=== PATIENT | female | born 1965 | race Caucasian/White ===

== ENCOUNTER 2021-11-29 14:55 | Inpatient (IN) | payer OTHER ==
[~2021-11-29] VITALS: Ht 149.9 cm; Wt 64.4 kg
[2021-11-29 16:25] LABS: HEMOGLOBIN 8.2 gm/dl (12.3-15.3); RED BLOOD COUNT 2.61 M/UL (4.00-5.10)
[2021-11-29 16:26] LABS: WHITE BLOOD COUNT 0.3 K/UL (4.5-11.0)
[2021-11-29 16:28] LABS: BUN/CREATININE RATIO 33 (0-10)
[2021-11-30] MEDS ORDERED: MYCOSTATIN100000 UTS PO (01:12)
[2021-11-30] MEDS ORDERED: SERTRALINE HCL50 MG PO (01:13)
[2021-11-30] MEDS ORDERED: PROTONIX 40 MG40 M1 PO (01:14)
[2021-11-30] MEDS ORDERED: ROXICODONE5 MG PO (01:14)
[2021-11-30] MEDS ORDERED: LIDOCAINE-PRILOC5 GM TP (01:15)
[2021-11-30 02:55] LABS: RED BLOOD COUNT 1.89 M/UL (4.00-5.10); WHITE BLOOD COUNT 0.2 K/UL (4.5-11.0)
--- NOTE | 2021-11-30 03:24 | NUR ---
0312- Lab called to clarify blood transfusion order. Jose in lab stated that the patient is B- and there is no B- blood in house. He also stated there are only 2 units of O- blood in house and that is held for trauma blood. Jose in lab wanted me to call Dr. Santoyo to see which type of blood would he prefer. Called Dr. Santoyo and he stated to go ahead and order 2 units of Irradiated B- blood from [facility]. Notified Jose in lab.
[2021-11-30 03:31] LABS: BUN/CREATININE RATIO 28 (0-10)
--- NOTE | 2021-11-30 03:53 | NUR ---
0350- Notified Dr. Santoyo that lab called and confirmed that we would be receiving 2 units of irradiated blood from [facility] (1 unit of irradiated B- and 1 unit of irradiated O- blood). Patient is being monitored closely, vital signs within normal limits. Patient agreed to blood transfusion and wanted her to sign the blood consent. Blood consent signed and in chart.
[2021-11-30 18:56] LABS: HEMOGLOBIN 9.5 gm/dl (12.3-15.3); RED BLOOD COUNT 3.05 M/UL (4.00-5.10); WHITE BLOOD COUNT 0.3 K/UL (4.5-11.0)
[2021-11-30 19:44] LABS: HEMOGLOBIN 9.4 gm/dl (12.3-15.3)
[2021-12-01 04:21] LABS: HEMOGLOBIN 9.5 gm/dl (12.3-15.3); RED BLOOD COUNT 3.04 M/UL (4.00-5.10)
[2021-12-01 04:26] LABS: WHITE BLOOD COUNT 0.3 K/UL (4.5-11.0)
[2021-12-01 04:47] LABS: BUN/CREATININE RATIO 31 (0-10)
[2021-12-01] MEDS ORDERED: DIFLUCAN200 MG PO (13:18)
[2021-12-01] MEDS ORDERED: SANCUSO1 EACH TD (13:19)
[2021-12-01] MEDS ORDERED: MORPHINE SULFAT30 M4 PO (13:20)
[2021-12-01] MEDS ORDERED: FLONASE 0.05% N16 GM (13:20)
[2021-12-01] MEDS ORDERED: VITAMIN D21250 MCG PO (13:20)
[2021-12-01] MEDS ORDERED: ONDANSETRON ODT8 MG PO (13:21)
[2021-12-02 06:46] LABS: HEMOGLOBIN 9.6 gm/dl (12.3-15.3); RED BLOOD COUNT 3.09 M/UL (4.00-5.10)
[2021-12-02 07:14] LABS: BUN/CREATININE RATIO 29 (0-10)
[2021-12-02 07:33] LABS: WHITE BLOOD COUNT 0.8 K/UL (4.5-11.0)
[2021-12-03 05:59] LABS: HEMOGLOBIN 9.9 gm/dl (12.3-15.3); RED BLOOD COUNT 3.19 M/UL (4.00-5.10)
[2021-12-03 06:02] LABS: WHITE BLOOD COUNT 4.7 K/UL (4.5-11.0)
[2021-12-03 13:09] LABS: 1 HR INCUB PT 1:1NP 11.6 sec (9.1-12.0); PT 1:1NP 11.4 sec (9.1-12.0)
[2021-12-03 14:11] LABS: APTT 57.4 sec (22.9-30.2); APTT 1:1 NORMAL PLASMA 28.6 sec (22.9-30.2); APTT 1:1 NP INCUB. MIX CTL 33.4 sec (22.9-30.2)
[2021-12-04 07:14] LABS: HEMOGLOBIN 10.1 gm/dl (12.3-15.3); RED BLOOD COUNT 3.2 M/UL (4.00-5.10)
[2021-12-04 07:36] LABS: WHITE BLOOD COUNT 17.7 K/UL (4.5-11.0)
[2021-12-05 03:38] LABS: HEMOGLOBIN 10.5 gm/dl (12.3-15.3); RED BLOOD COUNT 3.35 M/UL (4.00-5.10)
[2021-12-05 04:10] LABS: WHITE BLOOD COUNT 32.5 K/UL (4.5-11.0)
== END 2021-12-06 16:25 | DRG 808 ==
LOC: ER1 14:55 → CCU 18:26 → CDU 18:26 → CCU 11-30 00:52 → MED SURG 4 11-30 12:43
PROVIDERS: Physician Assistant Medical; Registered Nurse; ADMIT Internal Medicine
PROC: 30233R1 Transfusion of Nonautologous Platelets into Peripheral Vein, Percutaneous Approach (ICD-10-PCS; principal; 2021-11-29)
DX: D61.810 Antineoplastic chemotherapy induced pancytopenia (principal); G92.8 Other toxic encephalopathy; Z20.822 Contact with and (suspected) exposure to COVID-19; I21.A1 Myocardial infarction type 2; J18.9 Pneumonia, unspecified organism; K92.0 Hematemesis; C25.9 Malignant neoplasm of pancreas, unspecified; E87.2 Acidosis; R18.8 Other ascites; E87.0 Hyperosmolality and hypernatremia; B37.0 Candidal stomatitis; D69.6 Thrombocytopenia, unspecified; D70.2 Other drug-induced agranulocytosis; D64.81 Anemia due to antineoplastic chemotherapy; G89.3 Neoplasm related pain (acute) (chronic); E83.51 Hypocalcemia; I10 Essential (primary) hypertension; K76.0 Fatty (change of) liver, not elsewhere classified; R29.6 Repeated falls; E86.0 Dehydration; R79.1 Abnormal coagulation profile; D69.59 Other secondary thrombocytopenia; E87.6 Hypokalemia; T45.1X5A Adverse effect of antineoplastic and immunosuppressive drugs, initial encounter; F17.220 Nicotine dependence, chewing tobacco, uncomplicated; R53.81 Other malaise; G89.29 Other chronic pain; Z90.49 Acquired absence of other specified parts of digestive tract; Z90.710 Acquired absence of both cervix and uterus; Z80.9 Family history of malignant neoplasm, unspecified; Z82.49 Family history of ischemic heart disease and other diseases of the circulatory system
CPT/HCPCS: 36415; 70450; 71045; 80048; 80053; 80061; 80202; 81001; 82140; 82550; 82553; 82962; 83036; 83605; 83735; 83874; 84484; 85007; 85014; 85018; 85025; 85027; 85610; 85611; 85730; 85732; 86850; 86900; 86901; 86920; 87040; 92526; 92610; 93005; 93970; 96365; 96366; 96372; 96374; 96375; 96376; 97162; 97530; 99284; G0378 ×2; J0360; J0692; J1442; J1447; J1450; J2270; J2405; J3370; J3430; J3475; J3480; J7050; J7070; P9037; P9040; P9047; Q9967; U0002